=== PATIENT | male | born 1995 | race Hispanic/Latino ===

== ENCOUNTER 2017-11-07 20:44 | Emergency (ER) | payer SELFPAY ==
[2017-11-07] MEDS: AZITHROMYCIN 250 MG TAB PO (22:45)
[2017-11-07] MEDS: cefTRIAXone SOD 250 MG VIAL (J0696) IM (22:45)
[2017-11-07] MEDS ORDERED: LIDOCAINE 1% MDV 20ML VIAL As Ordered (23:41)
[2017-11-08 00:11] LABS: HEPATITIS B SURFACE ANTIBODY POSITIVE (POSITIVE); HIV SCRN NEGATIVE (NEGATIVE)
[2017-11-08 00:12] LABS: HIV SCRN1 NEGATIVE (NEGATIVE)
[2017-11-08 00:13] LABS: CONTROL LINE INT CTR LINE PRESENT
[2017-11-08 00:22] LABS: HEPATITIS B SURFACE ANTIGEN NEGATIVE (NEGATIVE)
[2017-11-08 00:47] LABS: CHLAMYDIA DNA AMPLIFICATION NEGATIVE (NEGATIVE); GC DNA AMPLIFICATION NEGATIVE (NEGATIVE)
== END 2017-11-08 00:07 | disposition home or self-care (01) ==
LOC: M ED 11-08 00:07
DX: Z20.2 Contact with and (suspected) exposure to infections with a predominantly sexual mode of transmission (principal); F17.210 Nicotine dependence, cigarettes, uncomplicated
CPT/HCPCS: J0696

== ENCOUNTER → 2020-03-03 | Outpatient (CLI) | payer OTHER, SELFPAY | LOC: M LABSMTC 13:17 | PROVIDERS: ATTEND Family Medicine | DX: Z11.59 Encounter for screening for other viral diseases (principal) | CPT/HCPCS: C9803; U0003 ==

== ENCOUNTER → 2020-04-19 | Emergency (ER) | payer OTHER ==
[~2020-04-19] MED LIST: AUGMENTIN 875 MG TAB As Ordered ONE; AUGMENTIN 875 MG TAB ONE; NAPROXEN 250 MG TAB As Ordered ONE; NAPROXEN 250 MG TAB ONE; NORCO 5/325MG TABLET (BULK FOR ED) As Ordered ONE; NORCO 5/325MG TABLET (BULK FOR ED) ONE
[2020-06-05 17:18] LABS: BASO # 0.1 10^3/uL (0.0-0.2); BASO % 0.7 % (0.0-1.0); EOS # 0.2 10^3/uL (0.0-0.5); EOS % 1.8 % (0.0-3.0); HEMATOCRIT 42.7 % (42.0-52.0); HEMOGLOBIN 14.8 g/dl (13.5-17.5); LYMPH # 3.4 10^3/uL (1.5-5.0); LYMPH % 35.3 % (24.0-44.0); MEAN CORPUSCULAR HGB CONC 34.7 g/dl (32.0-36.5); MEAN CORPUSCULAR VOLUME 89.3 fl (80.0-96.0); MONO # 0.8 10^3/uL (0.0-0.8); MONO % 8.5 % (0.0-5.0); NEUTROPHILS # 5.2 10^3/uL (1.5-8.5); NEUTROPHILS % 53.4 % (36.0-66.0); PLATELET COUNT, AUTOMATED 262 10^3/uL (150-450); RED BLOOD COUNT 4.78 10^6/uL (4.30-6.10); WHITE BLOOD COUNT 9.7 10^3/uL (4.0-10.0)
[2020-06-05 18:09] LABS: ERYTHROCYTE SEDIMENTATION RATE 117 mm/hr (0-15)
[2020-07-08 18:16] LABS: BLOOD UREA NITROGEN 12 MG/DL (7-18); CALCIUM LEVEL 9.2 MG/DL (8.5-10.1); CARBON DIOXIDE LEVEL 33 MEQ/L (21-32); CHLORIDE LEVEL 104 MEQ/L (98-107); CREATININE FOR GFR 1.09 MG/DL (0.70-1.30); GLOMERULAR FILTRATION RATE > 60.0 (>60); GLUCOSE, FASTING 115 MG/DL (70-100); SODIUM LEVEL 140 MEQ/L (136-145)
== END | disposition home or self-care (01) ==
LOC: M ED 21:56
DX: K00.6 Disturbances in tooth eruption (principal); K08.89 Other specified disorders of teeth and supporting structures

== ENCOUNTER 2020-10-17 14:21 | Emergency (ER) | payer OTHER, SELFPAY ==
[~2020-10-17] VITALS: Ht 172.7 cm; Wt 65.9 kg
[2020-10-17 14:22] VITALS: BP 147/76
--- OUTSIDE RECORDS SUMMARY | 2020-10-17 14:30 | CCD ---
Author Author [facility] Organization [facility] Address Unknown Phone Unavailable Support Name Relationship Address Phone ROBERTH SOTO Next Of Kin U UN, [place] U [place] Next Of Kin [address] [place] [address] Re-disclosure Warning The records that you are about to access may contain information from federally-assisted alcohol or drug abuse programs. If such information is present, then the following federally mandated warning applies: This information has been disclosed to you from records protected by federal confidentiality rules (42 CFR part 2). The federal rules prohibit you from making any further disclosure of this information unless further disclosure is expressly permitted by the written consent of the person to whom it pertains or as otherwise permitted by 42 CFR part 2. A general authorization for the release of medical or other information is NOT sufficient for this purpose. The Federal rules restrict any use of the information to criminally investigate or prosecute any alcohol or drug abuse patient.The records that you are about to access may contain highly sensitive health information, the redisclosure of which is protected by Article 27-F of the [facility] Public Health law. If you continue you may have access to information: Regarding HIV / AIDS; Provided by facilities licensed or operated by the [facility] Office of Mental Health; or Provided by the [facility] Office for People With Developmental Disabilities. If such information is present, then the following [facility] mandated warning applies: This information has been disclosed to you from confidential records which are protected by state law. State law prohibits you from making any further disclosure of this information without the specific written consent of the person to whom it pertains, or as otherwise permitted by law. Any unauthorized further disclosure in violation of state law may result in a fine or intermediate sentence or both. A general authorization for the release of medical or other information is NOT sufficient authorization for further disc losure. Insurance Providers Payer name Policy type / Coverage type Policy ID Covered libertarian ID Covered libertarian's relationship to isbell Policy Isbell Plan Information [facility] [id number] SELF PAY ONLY [id number] Results ID Date Data Source [id number] 03/03/2020 12:00:00 AM EDT [facility] Name Value Range Interpretation Code Description Data Nadia rce(s) Supporting Document(s) SARS CORONAVIRUS 2 RNA [facility] This lab was ordered by [facility] and reported by [facility]. Procedure
--- OUTSIDE RECORDS SUMMARY | 2020-10-17 15:20 | CCD ---
Author Author [facility] Organization [facility] Address Unknown Phone Unavailable Support Name Relationship Address Phone ROBERTH SOTO Next Of Kin U UN, [place] U [place] Next Of Kin [address] [place] [address] Re-disclosure Warning The records that you are [...] is protected by Article 27-F of the [facility] Public Health law. If you continue you may have access to information: Regarding HIV / AIDS; Provided by facilities licensed or operated by the [facility] Office of Mental Health; or Provided by the [facility] Office for People With Developmental Disabilities. If such information is present, then the following [facility] mandated warning applies: This information has [...] law may result in a fine or retirement sentence or both. A general authorization for the release of medical or other information is NOT sufficient authorization for further disc losure. Insurance Providers Payer name Policy type / Coverage type Policy ID Covered constitution party ID Covered constitution party's relationship to isbell Policy Isbell Plan Information SELF PAY ONLY [id number] [facility] [id number] [facility] [id number] Results ID Date Data Source [id number] 03/03/2020 12:00:00 AM EDT [facility] Name Value Range Interpretation Code Description Data Nadia rce(s) Supporting Document(s) SARS CORONAVIRUS 2 RNA [facility] This lab was ordered by [facility] and reported by [facility]. Procedure
== END 2020-10-17 15:40 | disposition home or self-care (01) ==
LOC: M ED 14:21
DX: F15.20 Other stimulant dependence, uncomplicated (principal); F12.10 Cannabis abuse, uncomplicated; F17.200 Nicotine dependence, unspecified, uncomplicated